=== PATIENT | female | born 1980 | race Caucasian/White ===

== ENCOUNTER → 2016-06-01 | Outpatient (CLI) | payer OTHER | LOC: MW.CHPM 08:01 | PROVIDERS: ATTEND Anesthesiology | DX: Z51.81 Encounter for therapeutic drug level monitoring (principal); Z79.891 Long term (current) use of opiate analgesic | CPT/HCPCS: 80305 ==

== ENCOUNTER → 2016-06-29 | Outpatient (CLI) | payer OTHER ==
[2016-06-29 09:34] LABS: CHLORIDE,CL 103 mmol/L (98-110); SODIUM,NA 138 mmol/L (136-146)
== END | disposition home or self-care (01) ==
LOC: MW.CHFP 08:50
PROVIDERS: ATTEND Nurse Practitioner Family
DX: Z01.818 Encounter for other preprocedural examination (principal)
CPT/HCPCS: 36415; 80053; 85027

== ENCOUNTER 2016-07-07 11:32 | Day surgery (SDC) | payer OTHER ==
[2016-07-07] MEDS ORDERED: Lactated Ringers 1,000 ML IV SCH (11:45)
[2016-07-07] MEDS ORDERED: Midazolam 1 MG/ML 2 ML SDV ONE (11:59)
[2016-07-07] MEDS ORDERED: fentaNYL 100 MCG/2 ML SDV ONE (11:59)
[2016-07-07] MEDS ORDERED: Propofol 200 MG/20 ML SDV ONE (11:59)
[2016-07-07] MEDS ORDERED: Lidocaine 2% 5 ML SDV ONE (12:05)
--- NOTE | 2016-07-07 12:16 | PCM.PREANE ---
Preanesthetic Assessment - Anesthesia/Transfusion/Family Hx Anesthesia History: Prior Anesthesia Without Reaction Family History of Anesthesia Reaction: No Transfusion History: No Prior Transfusion(s) - Review of Systems General: No Symptoms Pulmonary: No Symptoms Cardiovascular: No Symptoms Gastrointestinal: No symptoms Neurological: No Symptoms Other: Reports: None - Physical Assessment NPO Status Date: 07/06/16 Height: 1.57 m Weight: 69.4 kg ASA Class: 2 Mental Status: Alert & Oriented x3 Airway Class: Mallampati = 2 Dentition: Reports: Normal Dentition ROM/Head Extension: Limited/Partial Lungs: Clear to auscultation, Normal respiratory effort Cardiovascular: Regular Rate, Regular Rhythm - Allergies Allergies/Adverse Reactions: Allergies Allergy/AdvReac Type Severity Reaction Status Date / Time diclofenac [From Flector] Allergy Itching Verified 07/03/16 12:51 tramadol HCl [From Ultram] Allergy Itching Verified 07/03/16 12:51 - Anesthesia Plan Pre-Op Medication Ordered: None Med Last Dose Date: 07/06/16 - Acknowledgements Anesthesia Type Planned: MAC Pt an Appropriate Candidate for the Planned Anesthesia: Yes Alternatives and Risks of Anesthesia Discussed w Pt/Guardian: Yes Pt/Guardian Understands and Agrees with Anesthesia Plan: Yes PreAnesthesia Questionnaire Other HEENT History: wears glasses Cardiovascular History: Reports: None Respiratory History: Reports: Asthma Other Respiratory History: had asthma as a child, no symptoms now Gastrointestinal History: Reports: None Genitourinary History: Reports: Renal calculus Other Genitourinary History: during , all stones passed ADOPTION COUNSELOR History: Reports: Musculoskeletal History: Reports: Arthritis, Back pain, chronic, Fibromyalgia, Neck pain, chronic Other Musculoskeletal History: has Klippel-Feil Syndtome, hx of fx right elbow and bilateral wrists (no hardware) Neurological History: Reports: Headaches, chronic, Other (see below) Other Neuro History: cervical and throsic spinal stenosis, thorasic and lumbar disc disease, spondylosis Psychiatric History: Reports: None Endocrine/Metabolic History: Reports: None Hematologic History: Reports: None Immunologic History: Reports: None Oncologic (Cancer) History: Reports: None Dermatologic History: Reports: None - Past Surgical History Head Surgeries/Procedures: Reports: None HEENT Surgical History: Reports: Naso-sinus surgery Cardiovascular Surgical History: Reports: None Respiratory Surgical History: Reports: None GI Surgical History: Reports: None Female Surgical History: Reports: section, Tubal ligation Endocrine Surgical History: Reports: None Neurological Surgical History: Reports: None Musculoskeletal Surgical History: Reports: Other (see below) Other Musculoskeletal Surgeries/Procedures:: foot surgery for removal of hemangioma, bilateral wrist surgery ? tendons Oncologic Surgical History: Reports: None Dermatological Surgical History: Reports: None - SUBSTANCE USE Smoking Status *Q: Never Smoker Tobacco Use Within Last Twelve Months: No Recreational Drug Use History: No - HOME MEDS Home Medications: Home Meds Baclofen 10 - 20 mg PO TID 07/03/16 [History] Carisoprodol [Soma] 350 mg PO Q6HR PRN 07/03/16 [History] Diclofenac Sodium [Voltaren 1% Gel] 1 dose TOP QID 07/03/16 [History] Gebauers [place] And Stretch 1 spray TOP ASDIRECTED 07/03/16 [History] Ketamine HCl [Ketamine Hydrochloride] 1 dose TOP ASDIRECTED 07/03/16 [History] oxyCODONE HCl/Acetaminophen [Percocet 10-325 mg Tablet] 1 tab PO Q4H PRN [History] traMADol HCl [Tramadol HCl] 50 - 100 mg PO Q4H PRN 07/03/16 [History] traZODone HCl [Trazodone HCl] 50 mg PO BEDTIME 07/03/16 [History] - CURRENT (IN HOUSE) MEDS Current Meds: Current Medications Lactated Ringer's (Ringers, Lactated) 1,000 mls @ 125 mls/hr IV ASDIRECTED JOYA Discontinued Medications Fentanyl (Sublimaze) Confirm Administered Dose 100 mcg .ROUTE .STK-MED ONE Stop: 07/07/16 12:00 Lidocaine (Xylocaine-Mpf 2%) Confirm Administered Dose 10 ml .ROUTE .STK-MED ONE Stop: 07/07/16 12:06 Lidocaine HCl (Xylocaine-Mpf 1%) Confirm Administered Dose 5 ml .ROUTE .STK-MED ONE Stop: 07/07/16 11:59 Lidocaine HCl (Xylocaine-Mpf 1%) Confirm Administered Dose 5 ml .ROUTE .STK-MED ONE Stop: 07/07/16 12:05 Midazolam HCl (Versed 1 Mg/Ml) Confirm Administered Dose 2 mg .ROUTE .STK-MED ONE Stop: 07/07/16 12:00 Propofol (Diprivan 20 Ml) Confirm Administered Dose 200 mg .ROUTE .STK-MED ONE Stop: 07/07/16 12:00 Preanesthetic Assessment - ANESTHESIA/TRANSFUSION/FAMILY HX Family History of Anesthesia Reaction: No - PHYSICAL ASSESSMENT Height: 1.57 m Weight: 69.4 kg - ALLERGIES Allergies/Adverse Reactions: Allergies Allergy/AdvReac Type Severity Reaction Status Date / Time diclofenac [From Flector] Allergy Itching Verified 07/03/16 12:51 tramadol HCl [From Ultram] Allergy Itching Verified 07/03/16 12:51
[2016-07-07] MEDS ORDERED: ceFAZolin 1 GM Vial ONE (13:03)
[2016-07-07] MEDS ORDERED: Sodium Chloride 0.9% 20 ML ONE (13:03)
--- NOTE | 2016-07-07 14:03 | PCM.POSTAN ---
POST ANESTHESIA ASSESSMENT - MENTAL STATUS Mental Status: alert, oriented - RESPIRATORY Respiratory Status: respiratory rate WNL, airway patent - CARDIOVASCULAR CV Status: pulse rate WNL, blood pressure stable - GASTROINTESTINAL GI Status: no symptoms - POST OP HYDRATION Hydration Status: adequate & stable
--- NOTE | 2016-07-07 14:04 | PCM48HPAN ---
Post Anesthesia Note - EVALUATION WITHIN 48HRS OF ANESTHETIC Vital Signs in Normal Range: Yes Patient Participated in Evaluation: Yes Respiratory Function Stable: Yes Airway Patent: Yes Cardiovascular Function Stable: Yes Hydration Status Stable: Yes Pain Control Satisfactory: Yes Nausea and Vomiting Control Satisfactory: Yes Mental Status Recovered: Yes
--- NOTE | 2016-07-07 20:16 | OR ---
SURGEON: Francesca Erazo D.O. DATE OF PROCEDURE: 07/07/2016 OR STAFF PRESENT: 1. Shady Lara RN. 2. Sheila Lira RN. PREOPERATIVE DIAGNOSES: 1. Chronic pain syndrome. 2. Chronic back pain. 3. Lumbar radiculopathy. POSTOPERATIVE DIAGNOSES: 1. Chronic pain syndrome. 2. Chronic back pain. 3. Lumbar radiculopathy. PROCEDURE PERFORMED: 1. Spinal cord stimulator Infinion 15 cm 16-contact trial lead placed to the level of T6 on the right. 2. Spinal cord stimulator Infinion 15 cm 16 contact trial lead placed to level of T6 on the left. 3. Fluoroscopic guidance for trial lead placement. ANESTHESIA: MAC. PREOPERATIVE PAIN: 6-8/10. POSTOPERATIVE PAIN: 0/10. FOLLOWUP: In the pain clinic in the morning for reprograming. SCREENING QUESTIONS: The patient answered no to all the following questions: 1. Are you allergic to iodine, Betadine, or latex? 2. Do you have a bleeding disorder? 3. Are you on anti-inflammatories or blood thinners? 4. Are you ? 5. Do you have any current local or systemic infections? 6. Do you have any joint replacements, heart valve replacements or a pacemaker? DESCRIPTION OF PROCEDURE: The patient had the procedure thoroughly explained including risks, benefits, and alternatives. Consent was signed in my clinic indicating understanding and willingness to proceed. The patient presented to [facility] and was escorted to the dressing room to disrobe and change into a hospital gown. Preoperative history and screening were performed by the nurse. Vital signs were taken and stable. The patient was set up with an IV prior to the procedure. The patient was brought back to the procedure room and placed in the prone position on the procedure room table. A pillow was placed under the abdomen in order to flatten the lumbar lordosis. The patient was positioned comfortably and there was no evidence of infection at the sites of needle insertion. The back was prepped with ChloraPrep and sterilely draped. All personnel in the operating room were dressed in appropriate attire including surgical scrubs, head and shoe covers. This was to ensure sterility while in the treatment room. During the time fluoroscopy was in use, all personnel in the operating room wore lead boogie with thyroid collars. Sterile technique was used during the procedure. Prior to the start of the procedure, prophylactic antibiotic was administered IV. Skeletal landmarks were identified under fluoroscopic guidance. At all insertion sites, the skin and soft tissues were anesthetized with 2% lidocaine preservative-free with a sterile 27-gauge 1-1/2 inch needle. The epidural space was entered with a 14-gauge Tuohy epidural needle with loss-of- resistance technique. Under live fluoroscopic guidance, the 16 standard contact lead electrodes were advanced approximately to the midline at the top of the T6 vertebral body on the left and then again with REED- [id number] technique on the right. There was no CSF, no heme, and no paresthesias noted during placement of each lead. Lead placement was confirmed in the posterior epidural space in both in AP and lateral fluoroscopic views. Then intraoperative testing by the [employer] neuromodulation clinical specialist revealed appropriate coverage of the patient's normal areas of pain. The leads were then secured to the skin with occlusive dressing. No complications were noted throughout the procedure and vital signs were stable. Then the patient was brought to the recovery room in stable condition. At that time, the patient had additional stimulation patterns programmed which covered all the normal areas of pain. The patient tolerated the procedure well and was released home with postoperative instructions for follow up in the clinic in the morning. The patient will fill out a pain diary throughout the week of the spinal cord stimulator trial. Additionally, prior to discharge, postoperative instructions were given to the patient and the patient voiced understanding, including understanding of those signs and symptoms that would require emergency care. Preoperative pain 8-10 out of 10, postoperative 0-4/10 [id number] / MODL /[id number] KACY
== END 2016-07-07 15:15 | disposition home or self-care (01) ==
LOC: MW.SDS 11:32
PROVIDERS: ATTEND Anesthesiology
DX: G89.4 Chronic pain syndrome (principal); M54.2 Cervicalgia; M54.6 Pain in thoracic spine; M54.5 Low back pain; M54.16 Radiculopathy, lumbar region; F11.20 Opioid dependence, uncomplicated; M79.7 Fibromyalgia; Z88.8 Allergy status to other drugs, medicaments and biological substances; Z79.899 Other long term (current) drug therapy; Q76.1 Klippel-Feil syndrome
CPT/HCPCS: 63650; C1778; J0690; J2250; J3010; 00630; 63685; J2704

== ENCOUNTER → 2016-07-30 | Outpatient (CLI) | payer OTHER | LOC: MW.CHPM 08:19 | PROVIDERS: ATTEND Anesthesiology | DX: Z51.81 Encounter for therapeutic drug level monitoring (principal); Z79.891 Long term (current) use of opiate analgesic | CPT/HCPCS: 80305 ==